=== PATIENT | female | born 1930 | race Caucasian/White ===

== ENCOUNTER 2016-05-03 14:55 | Emergency (ER) | payer MEDICARE, BC ==
--- NOTE | 2016-05-03 15:47 | ERNOTE ---
GI Bleeding/Rectal Pain ER Presenting Symptoms: vomiting blood Time Seen by Provider: 05/03/16 15:28 Source: family Exam Limitations: dementia Immunizations: IMMUNIZATION HX Immunizations Up to Date Yes History of Influenza Vaccine Yes Hx Pneumococcal Vaccination Yes Allergies/Adverse Reactions: Allergies No Known Allergies Allergy (Verified 05/03/16 15:21) Home Medications: HOME MEDICATIONS Escitalopram Oxalate [Lexapro] 10 mg PO DAILY 01/11/16 [Last Taken Unknown] Acetaminophen [Tylenol] 500 mg PO Q6H PRN #30 tablet 01/15/16 [Last Taken Unknown] Pantoprazole Sodium [Protonix] 40 mg PO DAILY@0700 #30 tablet. 01/15/16 [Last Taken Unknown] Saccharomyces Boulardii [Florastor] 250 mg PO BID #60 capsule 01/15/16 [Last Taken Unknown] Acetaminophen/Chlorpheniramine [Coricidin Hbp Cold & Flu Tab] 1 each PO DAILY [Last Taken Unknown] Calcium Carbonate/Vitamin D3 [Calcium 600 + D3 Softgel] 1 each PO DAILY [Last Taken Unknown] Oxybutynin Chloride [Ditropan] 5 mg PO DAILY 05/03/16 [Last Taken Unknown] Narrative: Patient has a history of dementia and is unable to give a history. She resides at [facility] and apparently started to vomit last night, three times since then, bloody once, unsure whether she has anything by mouth since. On review of her chart she was admitted in January for diverticulitis as well as upper GI bleed due to hiatal hernia and esophagitis. She is supposed to be on a soft diet but [facility] is unable to provide that for her. Prior Treament: Reports: similar symptoms before Review of Systems - Narrative Narrative: unable to obtain due to dementia - Patient's Past Medical History Patient History - Medical: Arthritis, Dementia, Osteoarthritis, Other - Gi bleed Patient History - Cardiac/Respiratory: Hyperlipidemia Patient History - Cancer: No Hx of Cancer Patient History - Surgical Procedures: Other Patient History - Other: None - Family History Father Family History - Medical: History Unknown Family History - Cardiac/Respiratory: History Unknown Mother Family History - Medical: History Unknown Family History - Cardiac/Respiratory: History Unknown - Social History Living Situations: assisted living Psych History: No pertinent hx Does anyone smoke in the home?: No Smoking Status: Never smoker Have you smoked in the past 12 months: No Alcohol Use: none Drug Use: none - Immunizations Immunizations Up to Date: Yes Hx Pneumococcal Vaccination: Yes History of Influenza Vaccine: Yes Physical Exam - Physical Exam General Appearance: Present: wd/wn, alert, no apparent distress Eye Exam: Normal inspection: bilateral Ears, Nose, Throat: Present: normal pharynx. Absent: dry mucous membranes Respiratory: Present: no respiratory distress, normal breath sounds, lungs clear Cardiovascular/Chest: Present: regular rate, rhythm, no murmur Gastrointestinal/Abdominal: Present: normal bowel sounds, nontender, nondistended, soft Extremity Exam: Present: no edema Neurological Exam: Present: alert, disoriented to time, disoriented to place, disoriented to situation Skin Exam: Present: normal color, warm/dry ED Progress - Results and Orders Patient's Lab Results:: I have reviewed the patient's lab results. - Vital Signs Patient's Vital Signs:: I have reviewed the patient's vital signs. Vital Signs: Vital Signs 05/03/16 15:15 Temperature 35.9 C L Pulse Rate 72 Respiratory 16 Rate Blood Pressure 165/61 O2 Sat by Pulse 92 Oximetry - X-Ray X-Ray #1 X-Ray: abdomen - non specific bowel gas pattern Interpretation: Reviewed by me - Progress/Reassessment Chief Complaint: General Assessment Progress Note-Subjective: 05/03/16 17:06 discussed results with nephew, feels comfortable taking her back to [facility] no vomiting here, patient is tolerating water Departure Clinical Impression: Hematemesis Qualifiers: Nausea presence: unspecified Qualified Code(s): K92.0 - Hematemesis - Departure Disposition: Other health care facility Condition: Fair Instructions: Hematemesis Additional Instructions: call your doctor after the weekend for a follow up appointment try a liquid diet and advance to soft diet return to the ER at any time if you vomit blood repeatedly Referrals: Tennille Sánchez MD [Primary Care Provider] -
--- OUTSIDE RECORDS SUMMARY | 2016-05-03 15:49 | XMS REPORT | Continuity of Care Document ---
:1930 Author Organization [facility] ([facility]) Address [address] [place] [address] Phone [phone] Care Team Providers Name Role Phone Tennille Sánchez Primary Care Provider [phone] Source Comments This disclosure is being made pursuant to the Care Everywhere program, applicable federal and state laws, and may not contain all informaitonavailable regarding this patient.[facility] ([facility]) Active Allergies and Adverse Reactions Allergen Noted Date Severity Reactions Comments Penicillins Urticaria (Hives) Current Medications Not on file Active Problems Problem Noted Date 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 due to conditions classified 2007 elsewhere Other persistent mental disorders due to conditions classified elsewhere 10/08 Pain in joint, pelvic region and thigh 07/01/2007 Primary localized osteoarthrosis, pelvic region and thigh 07/01/2007 Social History Tobacco Use Types Packs/Day Years Used Date Never Assessed Last Filed Vital Signs Vital Sign Reading Time Taken Blood Pressure 111/58 10/16/2007 8:00 AM CDT Pulse 72 10/16/2007 8:00 AM CDT Temperature 36.6 C (97.88 F) 10/16/2007 8:00 AM CDT Respiratory Rate 18 10/16/2007 8:00 AM CDT Height 1.58 m (5' 2.2") 10/13/2007 8:39 PM CDT Weight 46.997 kg (103 lb 9.8 oz) 10/13/2007 8:39 PM CDT Body Mass Index 18.83 10/13/2007 8:39 PM CDT Oxygen Saturation 98% 10/13/2007 1:00 PM CDT Plan of Care Health Maintenance Due Date Last Done Comments Hepatitis B Vaccine (1 of 3 - Primary Series) 1930 Tdap Vaccine 1940 Lipid Disorder Screening 1947 Td Vaccine 1947 Zoster Vaccine 1989 Pneumococcal Vaccine (1 of 2 - PCV13) 1994 Influenza Vaccine: Seasonal (#1) 10/09/2015 Results from Last 3 Months Not on file
[2016-05-03 15:50] LABS: Hematocrit 38.1 % (37.0-47.0); Hemoglobin 12.5 gm/dL (12.5-16.0); Mean Cell Volume 87.4 fl (78-100); Mean Corpuscular Hemoglobin 28.7 pg (27-31); Mean Corpuscular Hgb Conc 32.8 g/dl (32-36); Neutrophil # 6.3 K/mm3 (1.3-6.0); Platelet Count 298 K/mm3 (150-450); Red Blood Count 4.36 M/mm3 (4.2-5.4); Red Cell Distribution Width 12.9 % (11.5-14.0); White Blood Count 7.5 K/mm3 (4.0-10.5)
[2016-05-03 16:06] LABS: Albumin * 3.6 gm/dl (3.4-5.0); Anion Gap 13.2 mmol/L (6.8-13.8); BUN/Creatinine Ratio 21.4 (9.0-21.6); Bilirubin, Total 0.5 mg/dL (0.0-1.1); Ca. Corrected For Albumin 8.9 mg/dL (8.4-10.2); Calcium * 8.9 mg/dL (7.9-10.9); Carbon Dioxide 27.6 mmol/L (24-32.6); Potassium 3.8 mmol/L (3.4-4.6); Total Protein 7.5 gm/dL (6.2-8.2)
[2016-05-03 17:19] VITALS: BP 158/82
== END 2016-05-03 17:20 | disposition short-term general hospital (02) ==
LOC: ER 14:55
DX: K92.0 Hematemesis (principal); M19.90 Unspecified osteoarthritis, unspecified site

== ENCOUNTER 2016-06-03 08:54 | Emergency (ER) | payer MEDICARE, BC ==
--- NOTE | 2016-06-03 09:07 | ERNOTE ---
Time Seen by Provider: 06/03/16 08:58 Stated Complaint: cough Presenting Symptoms:: cough Source: EMS Exam Limitations: dementia Immunizations: IMMUNIZATION HX Immunizations Up to Date Yes History of Influenza Vaccine Yes Hx Pneumococcal Vaccination Yes Allergies/Adverse Reactions: Allergies No Known Allergies Allergy (Verified 06/03/16 09:06) Home Medications: HOME MEDICATIONS Escitalopram Oxalate [Lexapro] 10 mg PO DAILY 01/11/16 [Last Taken Unknown] Acetaminophen [Tylenol] 500 mg PO Q6H PRN #30 tablet 01/15/16 [Last Taken Unknown] Pantoprazole Sodium [Protonix] 40 mg PO DAILY@0700 #30 tablet. 01/15/16 [Last Taken Unknown] Saccharomyces Boulardii [Florastor] 250 mg PO BID #60 capsule 01/15/16 [Last Taken Unknown] Acetaminophen/Chlorpheniramine [Coricidin Hbp Cold & Flu Tab] 1 each PO Q6H [Last Taken Unknown] Oxybutynin Chloride [Ditropan] 5 mg PO BID 05/03/16 [Last Taken Unknown] - History of Present Ilness Narrative: History is limited by dementia. Patient was apparently eating eggs for breakfast when she started to cough and then vomit. Patient does not remember anything, she has a history of hiatal hernia with prior episodes of vomiting Review of Systems - Narrative Narrative: unable to obtain - Patient's Past Medical History Patient History - Medical: Arthritis, Dementia, Osteoarthritis, Other - Gi bleed Patient History - Cardiac/Respiratory: Hyperlipidemia Patient History - Cancer: No Hx of Cancer Patient History - Surgical Procedures: Other Patient History - Other: None - Family History Father Family History - Medical: History Unknown Family History - Cardiac/Respiratory: History Unknown Mother Family History - Medical: History Unknown Family History - Cardiac/Respiratory: History Unknown - Social History Living Situations: assisted living Abuse History: No History of abuse Psych History: No pertinent hx Does anyone smoke in the home?: No Alcohol Use: none Drug Use: none - Immunizations Immunizations Up to Date: Yes Hx Pneumococcal Vaccination: Yes History of Influenza Vaccine: Yes Physical Exam - Physical Exam General Appearance: Present: wd/wn, alert, no apparent distress Eye Exam: Normal inspection: bilateral Ears, Nose, Throat: Present: normal ENT inspection, normal pharynx Respiratory: Present: no respiratory distress, normal breath sounds, no accessory muscle use, lungs clear Cardiovascular/Chest: Present: regular rate, rhythm, no murmur Gastrointestinal/Abdominal: Present: nontender, nondistended, soft Neurological Exam: Present: alert, disoriented to person, disoriented to time, disoriented to place, disoriented to situation Skin Exam: Present: normal color, warm/dry ED Progress - Results and Orders Patient's Lab Results:: I have reviewed the patient's lab results. - Vital Signs Patient's Vital Signs:: I have reviewed the patient's vital signs. - X-Ray X-Ray #1 X-Ray: chest - chronic, no acute changes Interpretation: Reviewed by me - Progress/Reassessment Progress Note-Subjective: 06/03/16 10:33 O2 sat 92-94% on RA, lungs CTA, discussed result with son, no sign of significant acute aspiration, small amount cannot be ruled out, son will take patien back to [facility] Departure - Departure Clinical Impression: Hiatal hernia with GERD Disposition: Other health care facility Condition: Fair Instructions: Hiatal Hernia Additional Instructions: call your doctor for follow up continue on a soft diet if possible return to the ER for fever or shortness of breath Referrals: Tennille Sánchez MD [Staff Physician] -
[2016-06-03 09:17] LABS: Hematocrit 38.7 % (37.0-47.0); Hemoglobin 12.5 gm/dL (12.5-16.0); Mean Cell Volume 88.6 fl (78-100); Mean Corpuscular Hemoglobin 28.6 pg (27-31); Mean Corpuscular Hgb Conc 32.3 g/dl (32-36); Mean Platelet Volume 9.1 fl (6.0-9.5); Neutrophil # 7.3 K/mm3 (1.3-6.0); Neutrophil % 81.7 % (42-75.0); Platelet Count 330 K/mm3 (150-450); Red Blood Count 4.37 M/mm3 (4.2-5.4); Red Cell Distribution Width 13.2 % (11.5-14.0); White Blood Count 8.9 K/mm3 (4.0-10.5)
[2016-06-03 09:35] LABS: Albumin * 3.5 gm/dl (3.4-5.0); Anion Gap 13.7 mmol/L (6.8-13.8); BUN/Creatinine Ratio 19.7 (9.0-21.6); Bilirubin, Total 0.3 mg/dL (0.0-1.1); Ca. Corrected For Albumin 8.8 mg/dL (8.4-10.2); Calcium * 8.7 mg/dL (7.9-10.9); Carbon Dioxide 27.9 mmol/L (24-32.6); Potassium 3.6 mmol/L (3.4-4.6); Total Protein 7.3 gm/dL (6.2-8.2)
--- OUTSIDE RECORDS SUMMARY | 2016-06-03 09:37 | XMS REPORT | Continuity of Care Document ---
:1930 Author Organization [facility] ([facility]) Address [address] [place] [address] Phone [phone] Care Team Providers Name Role Phone Tennille Sánchez Primary Care Provider [phone] Source Comments This disclosure is being made pursuant to the Care Everywhere program, applicable federal and state laws, and may not contain all informaitonavailable regarding this patient.[facility] ([facility]) Active Allergies and Adverse Reactions Allergen [...]
[2016-06-03 12:25] VITALS: BP 142/76
== END 2016-06-03 10:49 | disposition short-term general hospital (02) ==
LOC: ER 08:54
DX: K44.9 Diaphragmatic hernia without obstruction or gangrene (principal); K21.9 Gastro-esophageal reflux disease without esophagitis

== ENCOUNTER 2017-05-09 11:50 | Inpatient (IN) | payer MEDICARE, BC ==
[2017-05-09] MEDS ORDERED: ALBUTEROL SULFATE/IPRATROPIUM 3 ML NEBU IH ONE ×2 (11:53→12:09)
[2017-05-09 12:12] LABS: Hematocrit 38.3 % (37.0-47.0); Hemoglobin 12.4 gm/dL (12.5-16.0); Mean Corpuscular Hemoglobin 28.5 pg (27-31); Mean Corpuscular Hgb Conc 32.4 g/dl (32-36); Mean Platelet Volume 8.9 fl (6.0-9.5); Neutrophil # 3.7 K/mm3 (1.3-6.0); Neutrophil % 50.4 % (42-75.0); Platelet Count 253 K/mm3 (150-450); Red Blood Count 4.35 M/mm3 (4.2-5.4); Red Cell Distribution Width 13.6 % (11.5-14.0); White Blood Count 7.2 K/mm3 (4.0-10.5)
--- NOTE | 2017-05-09 12:23 | ERNOTE ---
Medical Problem HPI - General Chief Complaint: General Assessment Time Seen by Provider: 05/09/17 11:51 Source: EMS, correction records Exam Limitations: dementia - Immun/Allergies/Home Medications Immunizations: IMMUNIZATION HX Immunizations Up to Date Yes History of Influenza Vaccine More Information Required Hx Pneumococcal Vaccination More Information Required Allergies/Adverse Reactions: Allergies No Known Allergies Allergy (Verified 05/08/17 11:20) Home Medications: HOME MEDICATIONS Escitalopram Oxalate [Lexapro] 10 mg PO DAILY 01/11/16 [Last Taken Unknown] Pantoprazole Sodium [Protonix] 40 mg PO DAILY@0700 #30 tablet.dr 01/15/16 [Last Taken Unknown] Saccharomyces Boulardii [Florastor] 250 mg PO BID #60 capsule 01/15/16 [Last Taken Unknown] Oxybutynin Chloride [Ditropan] 5 mg PO BID 05/03/16 [Last Taken Unknown] Cefuroxime Axetil [Ceftin] 500 mg PO BID #20 tab 05/08/17 [Last Taken Unknown] - History of Present History Narrative: Patient was seen here yesterday for bronchitis and bronchospasm and was treated and sent back to her memory unit. She rebounded back in to acute bronchospasm and they're not able to manage it at her living facility. Patient has dementia so she is unable to assist us in any way and her care. Timing: constant Severity: moderate Review of Systems - Review of Systems Constitutional: Present: See HPI EYE: Present: no symptoms reported ENT: Present: no symptoms reported Respiratory: Present: See HPI Cardiology: Present: no symptoms reported Gastrointestinal/Abdominal: Present: no symptoms reported Genitourinary: Present: no symptoms reported Musculoskeletal: Present: no symptoms reported Skin: Present: no symptoms reported Neurological: Present: no symptoms reported Endocrine: Present: no symptoms reported Hematologic/Lymphatic: Present: no symptoms reported Psych: Present: no symptoms reported - Patient's Past Medical History Patient History - Medical: Arthritis, Dementia, Osteoarthritis, Other Patient History - Cardiac/Respiratory: Hyperlipidemia Patient History - Cancer: No Hx of Cancer Patient History - Surgical Procedures: Other Patient History - Other: None LMP (females 10-50): Menopausal - Family History Father Family History - Medical: History Unknown Family History - Cardiac/Respiratory: History Unknown Mother Family History - Medical: History Unknown Family History - Cardiac/Respiratory: History Unknown - Social History Living Situations: assisted living Abuse History: No History of abuse Psych History: No pertinent hx Smoking Status: Smoker, status unknown Have you smoked in the past 12 months: No Do you dip or chew tobacco: No Alcohol Use: none Drug Use: none - Immunizations Immunizations Up to Date: Yes Hx Pneumococcal Vaccination: More Information Required to Determine History of Influenza Vaccine: More Information Required to Determine Physical Exam - Physical Exam General Appearance: Present: wd/wn, alert, moderate distress Head Exam: Present: normal inspection, no evidence of injury Eye Exam: Normal inspection: bilateral, PERRL: bilateral Ears, Nose, Throat: Present: normal ENT inspection, H, normal pharynx Neck: Present: normal inspection, nontender Respiratory: Present: no accessory muscle use, chest nontender, respiratory distress, rhonchi, wheezing Cardiovascular/Chest: Present: regular rate, rhythm, no murmur, normal peripheral pulses Gastrointestinal/Abdominal: Present: normal bowel sounds, nontender, nondistended, soft, no organomegaly Rectal Exam: Present: deferred Back Exam: Present: normal inspection, normal range of motion Extremity Exam: Present: normal inspection, non-tender, no edema, normal range of motion Neurological Exam: Present: alert, oriented, normal mood/affect Skin Exam: Present: normal color, warm/dry Lymphatic Exam: Present: no adenopathy ED Progress - Results and Orders Patient's Lab Results:: I have reviewed the patient's lab results. - Vital Signs Patient's Vital Signs:: I have reviewed the patient's vital signs. Vital Signs: Vital Signs 05/09/17 11:54 Temperature 36.6 C Pulse Rate 62 Respiratory 24 H Rate Blood Pressure 121/65 O2 Sat by Pulse 86 L Oximetry - X-Ray X-Ray #1 X-Ray: chest Interpretation: Reviewed by me - Progress/Reassessment Chief Complaint: General Assessment Plan - Plan Plan: Patient has failed outpatient treatment and will need to be brought in for IV antibiotics, serial breathing treatments as well as IV steroids. It is entirely possible that these areas that are seen on the chest x-ray might be pneumonia rather than atelectasis and she'll be treated presumptively for the pneumonia. Departure Clinical Impression: Hypoxia, Bronchospasm Pneumonia Qualifiers: Pneumonia type: due to unspecified organism Laterality: bilateral Lung location : lower lobe of lung Qualified Code(s): J18.9 - Pneumonia, unspecified organism - Departure Disposition: Still a patient Condition: Fair
[2017-05-09 12:28] LABS: Albumin * 3.3 gm/dl (3.4-5.0); Anion Gap 11.8 mmol/L (6.8-13.8); BUN/Creatinine Ratio 10.8 (9.0-21.6); Bilirubin, Total 0.3 mg/dL (0.0-1.1); Calcium * 8.8 mg/dL (7.9-10.9); Carbon Dioxide 30.2 mmol/L (24-32.6); Magnesium 1.9 mg/dL (1.2-2.8); Total Protein 7.3 gm/dL (6.2-8.2)
[2017-05-09] MEDS ORDERED: METHYLPREDNISOLONE SOD SUCC/PF 40 MG/ML VIAL IV ONE (12:44)
[2017-05-09] MEDS ORDERED: METHYLPREDNISOLONE SOD SUCC/PF 40 MG/ML VIAL ONE (13:03)
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
[2017-05-09] MEDS ORDERED: ACETAMINOPHEN 500 MG TABLET PO PRN (17:52)
[2017-05-09] MEDS: ALBUTEROL SULFATE/IPRATROPIUM 3 ML NEBU IH SCH (18:23)
[2017-05-09] MEDS: BUDESONIDE 0.5 MG/2 ML VIAL.NEB IH SCH (18:23)
[2017-05-09] MEDS: NORMAL SALINE 1,000 ML IV PRN (18:50)
[2017-05-09] MEDS: METHYLPREDNISOLONE SOD SUCC 60 MG in WATER FOR INJ.,BACTERIOSTATIC 0 ML IV SCH ×2 (18:51→23:45)
[2017-05-09] MEDS: AZITHROMYCIN 500 MG in DEXTROSE 5 % IN WATER 250 ML IV SCH ×2 (18:53)
[2017-05-09] MEDS: SACCHAROMYCES BOULARDII 250 MG CAPSULE PO SCH (20:25)
[2017-05-09] MEDS: OXYBUTYNIN CHLORIDE 5 MG TABLET PO SCH (20:25)
[2017-05-10] MEDS: METHYLPREDNISOLONE SOD SUCC 60 MG in WATER FOR INJ.,BACTERIOSTATIC 0 ML IV SCH ×3 (05:42→17:46)
[2017-05-10] MEDS: ALBUTEROL SULFATE/IPRATROPIUM 3 ML NEBU IH SCH ×4 (06:26→18:58)
[2017-05-10] MEDS: BUDESONIDE 0.5 MG/2 ML VIAL.NEB IH SCH ×2 (06:26→19:00)
[2017-05-10] MEDS: OXYBUTYNIN CHLORIDE 5 MG TABLET PO SCH ×2 (08:51→21:00)
[2017-05-10] MEDS: ESCITALOPRAM OXALATE 10 MG TAB PO SCH (08:51)
[2017-05-10] MEDS: PANTOPRAZOLE SODIUM 40 MG TABLET.EC PO SCH (08:51)
[2017-05-10] MEDS: SACCHAROMYCES BOULARDII 250 MG CAPSULE PO SCH ×2 (08:51→21:00)
[2017-05-10] MEDS: NORMAL SALINE 1,000 ML IV PRN (09:00)
[2017-05-10] MEDS: AZITHROMYCIN 500 MG in DEXTROSE 5 % IN WATER 250 ML IV SCH ×2 (17:52)
[2017-05-11] MEDS: METHYLPREDNISOLONE SOD SUCC 60 MG in WATER FOR INJ.,BACTERIOSTATIC 0 ML IV SCH ×5 (00:27→23:47)
[2017-05-11] MEDS: NORMAL SALINE 1,000 ML IV PRN ×2 (02:13→17:07)
[2017-05-11] MEDS: BUDESONIDE 0.5 MG/2 ML VIAL.NEB IH SCH ×2 (06:18→18:13)
[2017-05-11] MEDS: ALBUTEROL SULFATE/IPRATROPIUM 3 ML NEBU IH SCH ×4 (06:18→18:12)
[2017-05-11] MEDS: PANTOPRAZOLE SODIUM 40 MG TABLET.EC PO SCH (07:23)
[2017-05-11] MEDS: ESCITALOPRAM OXALATE 10 MG TAB PO SCH (08:42)
[2017-05-11] MEDS: SACCHAROMYCES BOULARDII 250 MG CAPSULE PO SCH ×2 (08:42→20:23)
[2017-05-11] MEDS: OXYBUTYNIN CHLORIDE 5 MG TABLET PO SCH ×2 (08:42→20:23)
[2017-05-11] MEDS: cefTRIAXone SODIUM 1,000 MG in DEXTROSE 5 % IN WATER 50 ML IV SCH ×2 (08:49)
[2017-05-11] MEDS: AZITHROMYCIN 500 MG in DEXTROSE 5 % IN WATER 250 ML IV SCH ×2 (17:12)
[2017-05-12] MEDS: METHYLPREDNISOLONE SOD SUCC 60 MG in WATER FOR INJ.,BACTERIOSTATIC 0 ML IV SCH (05:03)
[2017-05-12] MEDS: BUDESONIDE 0.5 MG/2 ML VIAL.NEB IH SCH ×2 (06:23→18:31)
[2017-05-12] MEDS: ALBUTEROL SULFATE/IPRATROPIUM 3 ML NEBU IH SCH ×4 (06:23→18:31)
[2017-05-12] MEDS: PANTOPRAZOLE SODIUM 40 MG TABLET.EC PO SCH (06:31)
[2017-05-12] MEDS: predniSONE 20 MG TABLET PO SCH ×2 (06:32→08:46)
[2017-05-12] MEDS: NORMAL SALINE 1,000 ML IV PRN (07:29)
[2017-05-12 07:58] LABS: Hematocrit 34.5 % (37.0-47.0); Hemoglobin 11.4 gm/dL (12.5-16.0); Mean Cell Volume 87.8 fl (78-100); Mean Platelet Volume 9.6 fl (6.0-9.5); Neutrophil # 12.7 K/mm3 (1.3-6.0); Neutrophil % 91.9 % (42-75.0); Platelet Count 265 K/mm3 (150-450); Red Blood Count 3.93 M/mm3 (4.2-5.4); Red Cell Distribution Width 13.8 % (11.5-14.0); White Blood Count 13.9 K/mm3 (4.0-10.5)
--- NOTE | 2017-05-12 08:02 | PN ---
Subjective - Date and Time Seen Date: 05/12/17 Time: 07:58 Subjective Narrative: Patient HENNA x 1. She gets SOB with talking and starts coughing. Objective - Review of Systems Misc: All systems neg except as marked - ROS is unreliable due to mental status - Vitals Vitals: Last Vital Signs Temp 36.5 C 05/12/17 07:06 Pulse 77 05/12/17 07:06 Resp 16 05/12/17 07:06 BP 141/72 05/12/17 07:06 Pulse Ox 92 05/12/17 07:06 - Exam Constitutional: Present: Alert - SHAWNO x 1, Cooperative, Elderly ENT Exam: Present: hearing grossly normal Neck: Present: supple Respiratory: Present: decreased breath sounds, crackles, wheezing - occasional Cardiovascular/Chest: Present: regular rate, rhythm, no JVD, no murmur Abdomen: Present: Normal bowel sounds, soft, nontender Extremity: Present: no calf tenderness, pedal edema Assessment/Plan - Problems/Diagnosis (1) Bronchitis with bronchospasm Problem: Acute (2) Pneumonia Problem: Acute Qualifiers: Pneumonia type: due to unspecified organism Laterality: bilateral Lung location: lower lobe of lung Qualified Code(s): J18.9 - Pneumonia, unspecified organism Narrative: lisbeth repeat labs and CXR. will d/c IVF. (3) Osteoporosis Problem: Chronic Qualifiers: Osteoporosis type: unspecified (4) Dementia Problem: Chronic Qualifiers: Dementia type: Alzheimer's disease Alzheimer's disease onset: late-onset Dementia behavioral disturbance: without behavioral disturbance Qualified Code (s): G30.1 - Alzheimer's disease with late onset; F02.80 - Dementia in other diseases classified elsewhere without behavioral disturbance; F02.80 - Dementia in other diseases classified elsewhere without behavioral disturbance; F02.80 - Dementia in other diseases classified elsewhere without behavioral disturbance (5) Hx of AKA (above knee amputation) Problem: Acute
[2017-05-12 08:03] LABS: Anion Gap 11.4 mmol/L (6.8-13.8); BUN/Creatinine Ratio 26.9 (9.0-21.6); Carbon Dioxide 26.4 mmol/L (24-32.6); Potassium 3.8 mmol/L (3.4-4.6)
[2017-05-12] MEDS: SACCHAROMYCES BOULARDII 250 MG CAPSULE PO SCH ×2 (08:46→21:29)
[2017-05-12] MEDS: OXYBUTYNIN CHLORIDE 5 MG TABLET PO SCH ×2 (08:46→21:30)
[2017-05-12] MEDS: ESCITALOPRAM OXALATE 10 MG TAB PO SCH (08:46)
[2017-05-12] MEDS: cefTRIAXone SODIUM 1,000 MG in DEXTROSE 5 % IN WATER 50 ML IV SCH ×2 (08:48)
[2017-05-12] MEDS: AZITHROMYCIN 250 MG TABLET PO SCH (17:24)
[2017-05-13] MEDS: guaiFENesin 100 MG/5 ML BTL PO PRN ×2 (02:02→17:13)
[2017-05-13] MEDS: PANTOPRAZOLE SODIUM 40 MG TABLET.EC PO SCH (07:17)
--- NOTE | 2017-05-13 07:45 | PN ---
Subjective - Date and Time Seen Date: 05/13/17 Time: 07:41 Subjective Narrative: patient being fed breakfast . AAO X 1 only. Occasional cough. Day 5 of IV antibiotics. Objective - Review of Systems Misc: All systems neg except as marked - ROS is unreliable due to mental status - Vitals Vitals: Last Vital Signs Temp 36.7 C 05/13/17 07:24 Pulse 66 05/13/17 07:24 Resp 18 05/13/17 07:24 BP 157/72 05/13/17 07:24 Pulse Ox 95 05/13/17 07:24 - Abnormal Lab Findings Abnormal Lab Findings: Abnormal Lab Results 05/12/17 05/12/17 Range/Units 07:54 07:54 WBC 13.9 H D (4.0-10.5) K/mm3 RBC 3.93 L (4.2-5.4) M/mm3 Hgb 11.4 L (12.5-16.0) gm/dL Hct 34.5 L (37.0-47.0) % MPV 9.6 H (6.0-9.5) fl Immature Gran % (Auto) 0.90 H (0.001-0.429) % Immature Gran # (Auto) 0.13 H (0.000-0.0310) K/mm3 Neutrophils % 91.9 H (42-75.0) % Lymphocytes % 4.0 L (20-51) % Neutrophils # 12.7 H (1.3-6.0) K/mm3 Lymphocytes # 0.6 L (1.5-3.5) k/mm3 Chloride 107 H (97-106) mmol/L BUN/Creatinine Ratio 26.9 H (9.0-21.6) Random Glucose 163 H D (70-110) mg/dL - Exam Constitutional: Present: Alert - AAO x 1, Elderly ENT Exam: Present: hearing grossly normal Neck: Present: supple Respiratory: Present: decreased breath sounds, rhonchi, No rales Cardiovascular/Chest: Present: regular rate, rhythm, no JVD, no murmur Abdomen: Present: Normal bowel sounds, soft, nontender, nondistended Extremity: Present: no calf tenderness, other - positive AKA, right Assessment/Plan - Problems/Diagnosis (1) Bronchitis with bronchospasm Problem: Acute Narrative: continue with present management . possible discharge in the morning (2) Pneumonia Problem: Acute Qualifiers: Pneumonia type: due to unspecified organism Laterality: bilateral Lung location: lower lobe of lung Qualified Code(s): J18.9 - Pneumonia, unspecified organism Narrative: continue with IV antibiotics (3) Osteoporosis Problem: Chronic Qualifiers: Osteoporosis type: unspecified (4) Dementia Problem: Chronic Qualifiers: Dementia type: Alzheimer's disease Alzheimer's disease onset: late-onset Dementia behavioral disturbance: without behavioral disturbance Qualified Code (s): G30.1 - Alzheimer's disease with late onset; F02.80 - Dementia in other diseases classified elsewhere without behavioral disturbance; F02.80 - Dementia in other diseases classified elsewhere without behavioral disturbance; F02.80 - Dementia in other diseases classified elsewhere without behavioral disturbance (5) Hx of AKA (above knee amputation) Problem: Acute Narrative: PT was consulted.
[2017-05-13] MEDS: ALBUTEROL SULFATE/IPRATROPIUM 3 ML NEBU IH SCH ×4 (08:02→20:03)
[2017-05-13] MEDS: BUDESONIDE 0.5 MG/2 ML VIAL.NEB IH SCH ×2 (08:02→20:05)
[2017-05-13] MEDS: ESCITALOPRAM OXALATE 10 MG TAB PO SCH (08:42)
[2017-05-13] MEDS: SACCHAROMYCES BOULARDII 250 MG CAPSULE PO SCH ×2 (08:42→21:42)
[2017-05-13] MEDS: ENOXAPARIN SODIUM 40 MG/0.4 ML SYRG SC SCH (08:42)
[2017-05-13] MEDS: predniSONE 20 MG TABLET PO SCH (08:42)
[2017-05-13] MEDS: cefTRIAXone SODIUM 1,000 MG in DEXTROSE 5 % IN WATER 50 ML IV SCH ×2 (08:43)
[2017-05-13] MEDS: OXYBUTYNIN CHLORIDE 5 MG TABLET PO SCH ×2 (08:45→21:42)
[2017-05-13] MEDS: AZITHROMYCIN 250 MG TABLET PO SCH (17:13)
[2017-05-14] MEDS: guaiFENesin 100 MG/5 ML BTL PO PRN ×2 (01:45→10:24)
[2017-05-14 05:13] LABS: Hematocrit 33.1 % (37.0-47.0); Hemoglobin 10.9 gm/dL (12.5-16.0); Mean Cell Volume 86.9 fl (78-100); Mean Corpuscular Hemoglobin 28.6 pg (27-31); Mean Corpuscular Hgb Conc 32.9 g/dl (32-36); Mean Platelet Volume 9.5 fl (6.0-9.5); Platelet Count 298 K/mm3 (150-450); Red Blood Count 3.81 M/mm3 (4.2-5.4); Red Cell Distribution Width 13.7 % (11.5-14.0); White Blood Count 12.6 K/mm3 (4.0-10.5)
[2017-05-14 05:27] LABS: Total Cells Counted 100
[2017-05-14 05:33] LABS: Atypical (Reactive) Lymph 1 % (0-2); Hypersegmented Polys 3+; Lymphocyte 16 % (20-51); Monocyte 7 % (0-9); Neutrophil 76 % (42-75); Neutrophil # 9.6 K/mm3 (1.3-6.0); Platelet Estimate Increased (NORMAL); Rouleaux 2+; Toxic Granulation 2+
[2017-05-14] MEDS: ALBUTEROL SULFATE/IPRATROPIUM 3 ML NEBU IH SCH ×2 (06:18→10:06)
[2017-05-14] MEDS: BUDESONIDE 0.5 MG/2 ML VIAL.NEB IH SCH (06:18)
[2017-05-14] MEDS: PANTOPRAZOLE SODIUM 40 MG TABLET.EC PO SCH (07:34)
[2017-05-14] MEDS: OXYBUTYNIN CHLORIDE 5 MG TABLET PO SCH (08:35)
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
[2017-05-14] MEDS: SACCHAROMYCES BOULARDII 250 MG CAPSULE PO SCH (08:36)
[2017-05-14] MEDS: ESCITALOPRAM OXALATE 10 MG TAB PO SCH (08:37)
[2017-05-14] MEDS: ENOXAPARIN SODIUM 40 MG/0.4 ML SYRG SC SCH (08:38)
[2017-05-14] MEDS: cefTRIAXone SODIUM 1,000 MG in DEXTROSE 5 % IN WATER 50 ML IV SCH ×2 (08:40)
[2017-05-14] MEDS: predniSONE 20 MG TABLET PO SCH (08:40)
[2017-05-14 10:59] VITALS: BP 140/63
--- NOTE | 2017-05-28 18:38 | PN ---
Subjective - Date and Time Seen Date: 05/10/17 Time: 10:00 Subjective Narrative: Patient is unable to give a history due to dementia. She continues to have wheezing which is audible without the aid of stethoscope. She is not using her accessory muscles of respiration. Objective - Review of Systems Respiratory: Reports: Cough, Shortness of Breath Cardiac: Denies: Chest Pain, Edema - Vitals Vitals: Vital Signs 05/11/17 09:00 Temperature 36.8 C Pulse Rate 91 Resp. rate 20 Blood Pressure 163/75 O2 Sat. 96% RA - Exam Constitutional: Present: Elderly - alert, oriented x1, in NAD. ENT Exam: Present: hearing grossly normal, dry mucous membranes Neck: Present: normal inspection, trachea midline Respiratory: Present: decreased breath sounds, wheezing - bilaterally in both lungs Cardiovascular/Chest: Present: regular rate, rhythm Abdomen: Present: Normal bowel sounds, soft, nontender Extremity: Present: other - LT AKA, RT WNL. Skin Exam: Present: warm/dry, pallor Assessment/Plan Plan Narrative: Narrative: 1. Bronchitis with bronchospasm. Start Solu-Medrol 60 mg IV every 6 hours. GI prophylaxis with Protonix. DuoNeb IH 4 times a day. Cornet by resp if possible. Oral care. IV fluids NS at 75 mL an hour. 2.Pneumonia : Treat empirically for pneumonia with CTX 1 g IV daily and azithromycin 500 mg IV daily Day #2. 3. Osteoporosis: Vitamin D3 2000 units daily. 4. DVT prophylaxis Lovenox 40 mg daily CODE STATUS is DNR. - Problems/Diagnosis (1) Bronchitis with bronchospasm Problem: Resolved (2) bibasilar opacities on CXR Problem: Acute (3) Osteoporosis Problem: Chronic Qualifiers: Osteoporosis type: unspecified
--- NOTE | 2017-05-28 19:13 | PN ---
Subjective - Date and Time Seen Date: 05/11/17 Time: 11:00 Subjective Narrative: Continues to have intermittent wheezing and cough. Minimal sputum expectoration. Objective - Review of Systems Generalized/Overall Review: Denies: Chills, Fever Respiratory: Reports: Cough, Shortness of Breath, Wheezing - Vitals Vitals: Vital Signs 05/11/17 09:00 Temperature 36.8 C Pulse Rate 91 Resp. rate 20 Blood Pressure 163/75 O2 Sat by Pulse 96 - Exam Constitutional: Present: Elderly - Alert and oriented 1, in no NAD. Neck: Present: supple, trachea midline Respiratory: Present: decreased breath sounds, wheezing - bilaterally in both lung wesley Cardiovascular/Chest: Present: regular rate, rhythm Abdomen: Present: Normal bowel sounds, soft, nontender Extremity: Present: other - LT AKA, RT WNL. Skin Exam: Present: warm/dry, pallor Assessment/Plan Plan Narrative: Narrative: 1. Pneumonia: On CTX 1 mg IV daily and azithromycin 500 mg IV daily day #3. 2. Bronchitis with bronchospasm. On Solu-Medrol 60 mg IV every 6 hours. GI prophylaxis with Protonix. DuoNeb IH 4 times a day. Cornet by resp if possible. Oral care. IV fluids NS at 75 mL an hour. Gradually improving 3. Osteoporosis: Vitamin D3 2000 units daily. 4. DVT prophylaxis Lovenox 40 mg daily CODE STATUS is DNR. - Problems/Diagnosis (1) bibasilar opacities on CXR Problem: Acute Narrative: c/w pneumonia. (2) Bronchitis with bronchospasm Problem: Acute Narrative: improving. (3) Osteoporosis Problem: Chronic Qualifiers: Osteoporosis type: unspecified (4) Dementia Problem: Chronic Qualifiers: Alzheimer's disease onset: unspecified onset
== END 2017-05-14 13:15 | disposition home or self-care (01) | DRG 195 ==
LOC: ER 11:50 → INTOOBSV 12:50 → MS 12:50 → OBSVTOIN 05-10 11:30
PROVIDERS: ADMIT Internal Medicine; ATTEND Internal Medicine
DX: J18.9 Pneumonia, unspecified organism (principal); J20.9 Acute bronchitis, unspecified; G30.1 Alzheimer's disease with late onset; F02.80 Dementia in other diseases classified elsewhere, unspecified severity, without behavioral disturbance, psychotic disturbance, mood disturbance, and anxiety; M81.0 Age-related osteoporosis without current pathological fracture; Z89.612 Acquired absence of left leg above knee
CPT/HCPCS: 36415; 71045; 80048; 80053; 83735; 83880; 85007; 85025; 87040; 87081; 87400; 94640; 96365; 96375; 97162; 97530; 99284; 99285; G0378